=== PATIENT | male | born 1985 | race Caucasian/White ===

== ENCOUNTER 2016-08-15 21:05 | Emergency (ER) | payer OTHER ==
[~2016-08-15] VITALS: Ht 180.3 cm; Wt 88.7 kg
[2016-08-15 21:09] VITALS: TEMP 36.8; Ht 180.3 cm; Wt 88.7 kg
[2016-08-15] MEDS ORDERED: IBUP-1450 PO (21:20)
[2016-08-15] MEDS ORDERED: MoRPHine SULFATE 10 MG/ML CARP/VIAL IV STA (23:12)
[2016-08-15] MEDS ORDERED: ONDANSETRON INJ 2 MG/ML 2 ML VIAL IV STA (23:12)
[2016-08-15 23:29] VITALS: O2SAT 96
[2016-08-16] VITALS (11 sets, daily range): BP systolic 97–145; BP diastolic 62–91; PULSE 54–69; O2SAT 98–100
[2016-08-16] MEDS ORDERED: MIDAZOLAM HCL 1 MG/ML 2ML VIAL ONE (00:10)
[2016-08-16] MEDS ORDERED: PROPOFOL IV EMULSION 10 MG/ML 20 ML VIAL IV ONE (00:23)
[2016-08-16] MEDS ORDERED: OXYC1TAB3 PO (00:31)
--- NOTE | 2016-08-16 00:33 | EMERGENCY ROOM VISIT NOTE ---
Pre-Mod Sedation Assessment General Date of Moderate Sedation: Aug 16, 2016. Vital Signs: Vital Signs Past 12 Hours Date Time Temp Pulse Resp B/P Pulse Ox O2 Delivery O2 Flow Rate FiO2 08/15/16 23:29 66 17 112/78 96 Room Air 08/15/16 23:11 71 08/15/16 21:09 36.8 68 18 149/83 96 Room Air Review Cardiovascular: regular rate, rhythm, no edema, no murmur, normal peripheral pulses Abdomen: normal bowel sounds, non tender, soft Lungs: chest non-tender, lungs clear, normal breath sounds, no respiratory distress, no accessory muscle use Pre-Sedation Airway Assessment Oral Cavity: WNL Able to Visualize Vocal Cords: No Short Thick Neck: No Hx of Sleep Apnea: No Smoking Status: Current Every Day Smoker Mallampati Classification: Class I Procedure Planning Contraindications-for Mod Sed: None Yes Notes The planned sedation has been discussed with the patient and consent obtained. I have identified the patient, determined the appropriateness of sedation and have assessed the patient immediately prior to the procedure. All medicine(s) and interventions are by my order.
--- NOTE | 2016-08-16 00:50 | EMERGENCY ROOM VISIT NOTE ---
Post-Moderate Sedation Plan General Date of Moderate Sedation Aug 16, 2016. Vital Signs: Vital Signs Past 12 Hours Date Time Temp Pulse Resp B/P Pulse Ox O2 Delivery O2 Flow Rate FiO2 08/16/16 00:38 64 20 139/72 99 Nasal Cannula 2.0 08/16/16 00:28 69 20 115/68 98 Room Air 08/15/16 23:29 66 17 112/78 96 Room Air 08/15/16 23:11 71 08/15/16 21:09 36.8 68 18 149/83 96 Room Air Review - Discharge Plan Post Moderate Sedation Plan: On clinical assessment, the patient appears to have tolerated the conscious sedation without complications. Patient is recovering as anticipated. Patient will continue to be monitored by nursing and may be discharged when conscious sedation discharge criteria are met.
--- NOTE | 2016-08-16 00:54 | EMERGENCY ROOM VISIT NOTE ---
ED Visit Note First contact with patient: 23:50 The patient received IV morphine for pain. Sometime later, he received IV Versed for relaxation. He was not able to relax enough for the dislocated jaw to be reduced. He was too uncomfortable. I talked to the patient about undergoing conscious sedation, he was in favor of this. The risks and benefits were discussed. The proper paperwork was signed. The patient was placed on the rn cardiac rehab, all preparations were readied for conscious sedation. All airway equipment was readied. The patient had not eaten anything in about 6 hours. Conscious sedation: A timeout was taken. The patient received a total of 60 mg of propofol IV. He had adequate sedation and the jaw was reduced by Jonas Menchaca PA-C. The patient tolerated the procedure well, no complications. No issues with hypoxia or hypotension. Total time for the conscious sedation was about 18-20 minutes.
[2016-08-16] MEDS ORDERED: OXYCODONE HCL IR 5 MG TAB (IMMEDIATE RELEASE) PO STA (01:07)
[2016-08-16] MEDS ORDERED: PROPOFOL IV EMULSION 10 MG/ML 20 ML VIAL IV STA (01:11)
[2016-08-16] MEDS ORDERED: MIDAZOLAM HCL 5 MG/ML 1 ML VIAL IV STA (01:11)
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
== END 2016-08-16 01:54 | disposition home or self-care (01) ==
LOC: C.EDB 21:08
DX: S03.02XA Dislocation of jaw, left side, initial encounter (principal); X58.XXXA Exposure to other specified factors, initial encounter; F17.200 Nicotine dependence, unspecified, uncomplicated; Z87.828 Personal history of other (healed) physical injury and trauma

== ENCOUNTER 2016-08-25 22:50 | Emergency (ER) | payer OTHER ==
[~2016-08-25] VITALS: Ht 180.3 cm; Wt 87.7 kg
[~2016-08-25 22:50] MED LIST: IBUP-1450 PO; OXYC1TAB3 PO
[2016-08-25 22:58] VITALS: Ht 180.3 cm; Wt 87.7 kg
[2016-08-25] MEDS ORDERED: PROPOFOL IV EMULSION 10 MG/ML 100 ML VIAL IV PRN (23:15)
[2016-08-25 23:26] VITALS: PULSE 63; O2SAT 98
[2016-08-25] MEDS ORDERED: ACET-1256 PO (23:31)
[2016-08-25] MEDS ORDERED: PROPOFOL IV EMULSION 10 MG/ML 20 ML VIAL IV ONE (23:35)
[2016-08-25 23:42] VITALS: BP 114/69; PULSE 65; O2SAT 97
[2016-08-25 23:47] VITALS: BP 118/72; PULSE 68; O2SAT 97
[2016-08-25 23:51] VITALS: BP 118/72; PULSE 61; O2SAT 97
--- NOTE | 2016-08-25 23:56 | EMERGENCY ROOM VISIT NOTE ---
Pre-Mod Sedation Assessment General Date of Moderate Sedation: August 25, 2016. Vital Signs: Vital Signs Past 12 Hours Date Time Temp Pulse Resp B/P Pulse Ox O2 Delivery O2 Flow Rate FiO2 08/25/16 23:42 65 18 114/69 97 Room Air 08/25/16 23:30 99 Room Air 08/25/16 23:26 63 20 98 Room Air 08/25/16 23:25 62 08/25/16 22:58 57 20 130/78 98 Room Air Review Cardiovascular: regular rate, rhythm, no edema, no gallop, no JVD, no murmur, normal peripheral pulses Abdomen: normal bowel sounds, non tender, soft Lungs: chest non-tender, lungs clear, normal breath sounds, no respiratory distress, no accessory muscle use Airway Class: III Pre-Sedation Airway Assessment Oral Cavity: Chipped Teeth Able to Visualize Vocal Cords: No Short Thick Neck: No Hx of Sleep Apnea: No Smoking Status: Current Every Day Smoker Mallampati Classification: Class III (Unable to open jaw effectively with dislocation) ASA Classification: Class I Procedure Planning Contraindications-for Mod Sed: None Yes Notes The planned sedation has been discussed with the patient and consent obtained. I have identified the patient, determined the appropriateness of sedation and have assessed the patient immediately prior to the procedure. All medicine(s) and interventions are by my order.
--- NOTE | 2016-08-25 23:57 | EMERGENCY ROOM VISIT NOTE ---
Post-Moderate Sedation Plan General Date of Moderate Sedation August 25, 2016. Vital Signs: Vital Signs Past 12 Hours Date Time Temp Pulse Resp B/P Pulse Ox O2 Delivery O2 Flow Rate FiO2 08/25/16 23:42 65 18 114/69 97 Room Air 08/25/16 23:30 99 Room Air 08/25/16 23:26 63 20 98 Room Air 08/25/16 23:25 62 08/25/16 22:58 57 20 130/78 98 Room Air Review - Discharge Plan Post Moderate Sedation Plan: On clinical assessment, the patient appears to have tolerated the conscious sedation without complications. Patient is recovering as anticipated. Patient will continue to be monitored by nursing and may be discharged when conscious sedation discharge criteria are met.
[2016-08-26 00:06] VITALS: BP 115/70; PULSE 56; O2SAT 96
[2016-08-26 00:21] VITALS: BP 110/71; PULSE 57; O2SAT 98
[2016-08-26 00:25] VITALS: BP 114/77; PULSE 55; O2SAT 97
--- NOTE | 2016-08-26 04:39 | EMERGENCY ROOM VISIT NOTE ---
ED Visit Note First contact with patient: 23:03 Procedural Sedation Indication: Left TMJ Dislocation. Last Ate: 5pm 08/25/16 Previous issues with sedation: none Snore: denies Emergent: Yes ASA: II Mallampati: III - unable to open jaw with dislocation Dentures: none Time Out: 11:41pm Time Recovered: 11:51pm Total time: 16 minutes including pre, during and post sedation. Written consent was obtained after the risks and benefits were explained to the patient, including, but not limited to aspiration, allergic reaction, breathing difficulties, cardiac complications, vomiting, pain, event recall, bleeding, and /or infection. Pre-sedation examination and paperwork completed. The patient was on 100% oxygen via NRB prior to the procedure. Continuos end tidal CO2 monitoring, pulse oximetry, and cardiac monitoring were utilized. Suction, airway equipment, medications, respiratory equipment, and appropriate personnel were prepared prior to the initiation of the procedure. A time out was taken. Sedation was achieved utilizing 100 mg of propofol. After I observed the patient had reached the appropriate level of sedation the main procedure was performed without complication. Sedation was discontinued and the monitoring continued. The patient recovered quickly from the effects of the medication without complication or adverse event.
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
--- NOTE | 2016-08-26 07:37 | DIAGNOSTIC IMAGING REPORT ---
MAXILLOFACIAL CT CT DOSE: 608.58 mGy.cm HISTORY: Jaw pain. For mandible dislocation/injury TECHNIQUE: Multiaxial CT images of the maxillofacial region were performed and reformatted in the coronal plane without the use of contrast. COMPARISON: None. FINDINGS: The visualized cervical spine, skull base, pterygoid plates, nasal bones, lamina papyracea, orbital floors, mandible, and zygomatic arches are intact. No fractures. The orbits are unremarkable. IMPRESSION: No fractures within the maxillofacial region. The temporomandibular joints are well aligned. Electronically signed by: Javier Walker M.D. 08/26/2016 7:36 AM Dictated Date/Time: 08/26/2016 7:32 AM
== END 2016-08-26 01:01 | disposition home or self-care (01) ==
LOC: C.EDB 22:51
DX: S03.02XA Dislocation of jaw, left side, initial encounter (principal); X58.XXXA Exposure to other specified factors, initial encounter; F17.200 Nicotine dependence, unspecified, uncomplicated; Z88.5 Allergy status to narcotic agent; Z88.8 Allergy status to other drugs, medicaments and biological substances

== ENCOUNTER → 2016-10-28 | Outpatient (CLI) | payer OTHER ==
[~2016-10-28] MED LIST changes: +ACET-1256 PO; +IBUP-1427 PO; -OXYC1TAB3 PO
--- NOTE | 2016-10-28 13:26 | DIAGNOSTIC IMAGING REPORT ---
RIGHT HAND MIN 3 VIEWS HISTORY:31 yearsMaleRIGHT HAND INJURY Right COMPARISON: None TECHNIQUE: 3 views of the right hand FINDINGS: There is a slightly comminuted obliquely oriented fracture of the midshaft third metacarpal with ulnar and dorsal displacement of less than one cortex width. There is slight apex dorsal angulation of approximately 12 degrees. Moderate associated soft tissue swelling. No additional acute fracture or dislocation. No significant degenerative changes. Negative for radiopaque foreign body. IMPRESSION: Acute slightly comminuted and angulated obliquely oriented fracture of the midshaft third metacarpal. The above report was generated using voice recognition software. It may contain grammatical, syntax or spelling errors. Electronically signed by: Conor Montana M.D. 10/28/2016 1:25 PM Dictated Date/Time: 10/28/2016 1:23 PM
== END ==
LOC: C.RDSM 12:52
PROVIDERS: ATTEND Physician Assistant
DX: S62.322A Displaced fracture of shaft of third metacarpal bone, right hand, initial encounter for closed fracture (principal); X58.XXXA Exposure to other specified factors, initial encounter

== ENCOUNTER → 2016-11-19 | Outpatient (CLI) | payer OTHER ==
--- NOTE | 2016-11-19 08:44 | DIAGNOSTIC IMAGING REPORT ---
RIGHT HAND 3 VIEWS CLINICAL HISTORY: Follow-up fracture. FINDINGS: 3 views of the right hand are compared to study dated 10/28/2016. The skeletal structures are well mineralized. There is unchanged alignment of a healing comminuted fracture through the midshaft of the third metacarpal. Periosteal reaction and bony bridging are noted. There is persistent distraction of the largest fragments and mild angulation. Overlying soft tissue edema persists. No new fracture is seen. The joint spaces of the hand are well-maintained. IMPRESSION: Unchanged alignment of a healing third metacarpal fracture as compared to 10/28/2016. Electronically signed by: Denver Niño M.D. 11/19/2016 8:42 AM Dictated Date/Time: 11/19/2016 8:41 AM
== END ==
LOC: C.RDSM 12:08
PROVIDERS: ATTEND Physician Assistant
DX: S62.302D Unspecified fracture of third metacarpal bone, right hand, subsequent encounter for fracture with routine healing (principal); X58.XXXD Exposure to other specified factors, subsequent encounter

== ENCOUNTER 2016-12-26 21:55 | Emergency (ER) | payer OTHER ==
[~2016-12-26] VITALS: Ht 180.3 cm; Wt 80.2 kg
[~2016-12-26 21:55] MED LIST changes: -IBUP-1427 PO
[2016-12-26 21:59] VITALS: TEMP 36.6; Ht 180.3 cm; Wt 80.2 kg
[2016-12-26] MEDS ORDERED: KETAMINE HCL INJ 50 MG/ML 10 ML VIAL IV STA (22:50)
[2016-12-26 23:52] VITALS: BP 134/90; PULSE 70; O2SAT 99
[2016-12-26 23:55] VITALS: BP 148/76; PULSE 77; O2SAT 99
[2016-12-26 23:57] VITALS: BP 146/108; PULSE 85; O2SAT 99
[2016-12-27] MEDS ORDERED: KETOROLAC TROMETHAMINE 30 MG/ML VIAL IV STA
[2016-12-27 00:23] VITALS: BP 162/92; PULSE 61; O2SAT 95
--- NOTE | 2016-12-27 01:59 | EMERGENCY ROOM VISIT NOTE ---
History Report prepared by [place]: Elias Heart Under the Supervision of: Dr. Lee Adam M.D. First contact with patient: 22:35 Chief Complaint: FACIAL PAIN/INJURY Stated Complaint: MULTIPLE JAW DISLOCATIONS IN THE PAST History of Present Illness The patient is a 31 year old male who presents to the Emergency Room with complaints of constant left sided jaw pain that began around 2029. He rates his discomfort as a 3/10 in severity. He reports that the pain is worsened with trying to close his mouth. The patient states that he was able to eat dinner around 1714. He states that around 2029 he was eating an orange and his jaw suddenly locked up causing him jaw and facial pain. He states that he has not been able to close his mouth since. He admits that he has had this incident happen in the past. The patient denies falling and hitting his face. Source of History: patient Onset: 2029 Position: jaw, other Symptom Intensity: 3/10 Timing: constant Modifying Factors (Worsening): other (closing mouth) Note: The patient denies falling or hitting his face Review of Systems See HPI for pertinent positives & negatives. A total of 10 systems reviewed and were otherwise negative. Past Medical & Surgical Medical Problems: (1) Dislocation of mandible Surgical Problems: (1) No history of previous surgery Family History Patient reports no known family medical history. Social History Smoking Status: Current Every Day Smoker Alcohol Use: none Marital Status: single Housing Status: other Current/Historical Medications No Active Prescriptions or Reported Meds Allergies Coded Allergies: Codeine (Verified Allergy, Unknown, HIVES, 08/25/16) Promethazine (Verified Adverse Reaction, Unknown, irritability, 08/25/16) Physical Exam Vital Signs Date Time Temp Pulse Resp B/P (MAP) Pulse Ox O2 Delivery O2 Flow Rate FiO2 12/27/16 00:23 61 18 162/92 95 Room Air 12/26/16 23:58 85 12/26/16 23:57 85 18 146/108 99 Room Air 12/26/16 23:55 77 18 148/76 99 Room Air 12/26/16 23:52 70 18 134/90 99 Room Air 12/26/16 23:49 61 18 135/74 97 Room Air 12/26/16 21:59 36.6 61 18 133/80 97 Room Air Physical Exam Constitutional: Vital signs reviewed. Eyes: Pupils are equal round reactive to light. Conjunctiva are noninjected. ENT: Pharynx is clear without erythema or exudate. Mucous membranes are moist. Neck supple without meningeal signs. Deformity of left jaw consistent with unilateral mandibular dislocation. Respiratory: Clear to auscultation bilaterally. Breath sounds are equal bilaterally. Cardiovascular: Regular rate and rhythm. No rubs or gallops. GI: Soft, nondistended and nontender. Bowel sounds are present. Musculoskeletal: No peripheral edema. No lower extremity tenderness. Integumentary: No cyanosis. Neurological: The patient is awake and alert. No focal deficits. Psychiatric: Anxious. Medical Decision & Procedures ER Provider Diagnostic Interpretation: X-ray results as stated below per interpretation by me: MANDIBULAR X-RAY Left mandibular dislocation. SECOND MANDIBULAR X-RAY Good anatomical alignment post reduction. Medications Administered Medications (Trade) Dose Ordered Sig/Ricardo Route Start Time Stop Time Status Last Admin Dose Admin Ketamine HCl (Ketalar Steri-Vial Inj) 12 mg NOW STAT IV 12/26/16 22:50 12/26/16 22:53 DC 12/26/16 23:50 24 MG Ketorolac Tromethamine (Toradol Inj) 10 mg NOW STAT IV 12/27/16 00:00 12/27/16 00:01 DC 12/27/16 00:23 10 MG Procedure Mandibular Dislocation Reduction Indication: Jaw dislocation Verbal consent obtained. Risks and benefits were explained with the usual customary discussion. A time out was taken. The left mandibular dislocation was reduced by placing the patient supine and applying gentle downward inline traction on the mandible. This resulted in an easy reduction without complication. The patient tolerated the procedure well. ED Course 2242: The patient was evaluated in room C10. A complete history and physical exam was performed. 2250: Ordered Ketamine HCl 12mg IV. 0000: Ordered Toradol Injection 10 mg IV. 0001: I performed a mandibular reduction. See procedure note for further details. Medical Decision This is a 31-year-old male presents with jaw pain. Differential diagnosis includes mandibular dislocation, fracture. I did perform a limited focused review of portions of the patient's old chart on the electronic medical record. The patient has had no recent pertinent visits to this hospital. I did evaluate the patient as noted above. Clinically he has a obvious jaw dislocation. He states he has had multiple dislocations in the past. IV access was established. I did order and personally review the patient's mandibular x-rays as described above. He does have a sober friend an obvious mandibular dislocation on the left side. I did treat him with an analgesic dose of ketamine and 0.3 mg/kg IV over 5 minutes. I did attempt extraoral reduction but was unsuccessful. I therefore performed a reduction in the standard fashion by applying downward and posterior pressure with easy reduction of the mandible. I did order a postreduction film of the mandible which showed good anatomic alignment. The patient was treated with Toradol IV and discharged back to [facility]. He was advised to stay on a soft diet. Medication Reconcilliation Current Medication List: was personally reviewed by me Blood Pressure Screening Patient's blood pressure: Elevated blood pressure Blood pressure disposition: Elevated BP felt to be situational Impression Primary Impression: Dislocation of mandible Scribe Attestation The scribe's documentation has been prepared under my direct and personally reviewed by me in its entirety. I confirm that the note above accurately reflects all work, treatment, procedures, and medical decision making performed by me. Departure Information Dispostion Home / Self-Care Prescriptions No Active Prescriptions or Reported Meds Referrals Nivia VALLEJO (PCP) Forms HOME CARE DOCUMENTATION FORM, IMPORTANT VISIT INFORMATION Patient Instructions ED Dislocation Mandible, My [facility] Additional Instructions You have been examined and treated today on an emergency basis only. This is not a substitute for, or an effort to provide, complete comprehensive medical care. It is impossible to recognize and treat all injuries or illnesses in a single emergency department visit. It is therefore important that you follow up closely with the [facility]. Eat a soft diet for the next several days. Avoid opening your mouth fully. Problem Qualifiers Primary Impression: Dislocation of mandible Encounter type: initial encounter Qualified Codes: S03.00XA - Dislocation of jaw, unspecified side, initial encounter
--- NOTE | 2016-12-27 05:58 | DIAGNOSTIC IMAGING REPORT ---
MANDIBLE < 4 VIEWS CLINICAL HISTORY: eval for dislocation trauma. Dislocation. COMPARISON STUDY: None FINDINGS: Images of the mandible shows of both mandibular condyles to be positioned in overall anterior translation. Condylar fossa somewhat flattened. IMPRESSION: Anterior displacement of the mandibular condyles bilaterally. Flattening of the condylar fossa. The above report was generated using voice recognition software. It may contain grammatical, syntax or spelling errors. Electronically signed by: Jon Pulido M.D. 12/27/2016 5:57 AM Dictated Date/Time: 12/27/2016 5:55 AM
--- NOTE | 2016-12-27 06:06 | DIAGNOSTIC IMAGING REPORT ---
MANDIBLE < 4 VIEWS CLINICAL HISTORY: post reduciton dislocation COMPARISON STUDY: Study earlier same date. FINDINGS: Anatomic alignment IMPRESSION: Anatomic alignment status post closed reduction The above report was generated using voice recognition software. It may contain grammatical, syntax or spelling errors. Electronically signed by: Jon Pulido M.D. 12/27/2016 6:05 AM Dictated Date/Time: 12/27/2016 6:04 AM
[2016-12-27] MEDS ORDERED: IBUP-1450 PO (11:50)
[2016-12-27] MEDS ORDERED: IBUP-1427 PO (17:39)
== END 2016-12-27 00:47 | disposition home or self-care (01) ==
LOC: C.EDB 21:57 → C.EDC 12-27 00:47
DX: S03.00XA Dislocation of jaw, unspecified side, initial encounter (principal); X58.XXXA Exposure to other specified factors, initial encounter; F17.200 Nicotine dependence, unspecified, uncomplicated; Z87.828 Personal history of other (healed) physical injury and trauma; Z88.5 Allergy status to narcotic agent; Z88.8 Allergy status to other drugs, medicaments and biological substances

== ENCOUNTER 2016-12-27 11:37 | Emergency (ER) | payer OTHER ==
[~2016-12-27] VITALS: Ht 180.3 cm; Wt 79.7 kg
[2016-12-27 11:42] VITALS: Ht 180.3 cm; Wt 79.7 kg
[2016-12-27] MEDS ORDERED: IBUP-1450 PO (11:50)
[2016-12-27] MEDS ORDERED: MoRPHine SULFATE 10 MG/ML CARP/VIAL IV STA (12:46)
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
[2016-12-27] MEDS ORDERED: NURSING VERBAL MED ORDER ONE (14:00)
[2016-12-27] MEDS ORDERED: MoRPHine SULFATE 4 MG/ML 1 ML CARP\\VIAL ONE (14:26)
--- NOTE | 2016-12-27 14:55 | DIAGNOSTIC IMAGING REPORT ---
MANDIBLE MIN 4 VIEWS ROUTINE CLINICAL HISTORY: left TMJ dislocation pain COMPARISON STUDY: 12/27/2016 FINDINGS: Findings consistent with anterior translation of the mandibular condyles with the jaw in the open mouth position. No well-defined fracture.. This consistent with that of TMJ joint dislocation/meniscal dislocation. IMPRESSION: Findings consistent with that of a TMJ dislocation/meniscal displacement The above report was generated using voice recognition software. It may contain grammatical, syntax or spelling errors. Electronically signed by: Jon Pulido M.D. 12/27/2016 2:54 PM Dictated Date/Time: 12/27/2016 2:52 PM
[2016-12-27] MEDS ORDERED: DIAZEPAM INJ 5 MG/ML 2 ML CARP ONE (15:06)
[2016-12-27 15:24] VITALS: BP 118/58; PULSE 45; TEMP 36.9; O2SAT 97
--- NOTE | 2016-12-27 15:42 | EMERGENCY ROOM VISIT NOTE ---
Pre-Mod Sedation Assessment General Date of Moderate Sedation: Dec 27, 2016. Vital Signs: Vital Signs Past 12 Hours Date Time Temp Pulse Resp B/P (MAP) Pulse Ox O2 Delivery O2 Flow Rate FiO2 12/27/16 15:24 36.9 45 20 118/58 97 Room Air 12/27/16 14:49 46 12/27/16 14:46 51 19 116/73 97 Room Air 12/27/16 14:46 97 Room Air 12/27/16 11:42 36.7 61 20 117/74 98 Room Air Review Cardiovascular: regular rate, rhythm, no murmur Abdomen: non tender, soft Lungs: lungs clear Pre-Sedation Airway Assessment Oral Cavity: WNL Short Thick Neck: No Hx of Sleep Apnea: No Smoking Status: Current Every Day Smoker Mallampati Classification: Class I ASA Classification: Class I Procedure Planning Contraindications-for Mod Sed: None Yes Notes The planned sedation has been discussed with the patient and consent obtained. I have identified the patient, determined the appropriateness of sedation and have assessed the patient immediately prior to the procedure. All medicine(s) and interventions are by my order.
[2016-12-27] MEDS ORDERED: PROPOFOL IV EMULSION 10 MG/ML 20 ML VIAL IV ONE (15:48)
[2016-12-27 16:01] VITALS: BP 113/66; PULSE 55; O2SAT 98
[2016-12-27] MEDS ORDERED: MoRPHine SULFATE 10 MG/ML CARP/VIAL IV ONE (16:45)
[2016-12-27 16:58] VITALS: BP 115/68; PULSE 49; TEMP 36.5; O2SAT 100
[2016-12-27] MEDS ORDERED: IBUP-1427 PO (17:39)
--- NOTE | 2016-12-27 17:42 | EMERGENCY ROOM VISIT NOTE ---
Post-Moderate Sedation Plan General Date of Moderate Sedation Dec 27, 2016. Vital Signs: Vital Signs Past 12 Hours Date Time Temp Pulse Resp B/P (MAP) Pulse Ox O2 Delivery O2 Flow Rate FiO2 12/27/16 17:08 43 16 108/65 99 Room Air 12/27/16 16:58 36.5 49 12 115/68 100 Room Air 12/27/16 16:54 50 12 103/66 100 Nasal Cannula 2.0 12/27/16 16:20 113/65 12/27/16 16:17 45 5 97 12/27/16 16:15 104/61 12/27/16 16:12 50 7 98 12/27/16 16:11 120/68 12/27/16 16:07 52 12 99 12/27/16 16:05 10 115/64 98 Nasal Cannula 2.0 12/27/16 16:02 52 10 98 Nasal Cannula 2.0 12/27/16 16:01 51 12 113/66 98 Nasal Cannula 2.0 12/27/16 16:01 55 12 113/66 98 Nasal Cannula 2.0 12/27/16 15:57 42 12 111/54 99 Nasal Cannula 2.0 12/27/16 15:57 42 8 99 12/27/16 15:55 111/54 12/27/16 15:52 42 8 99 12/27/16 15:50 110/61 12/27/16 15:47 46 10 98 12/27/16 15:45 102/65 12/27/16 15:42 42 9 99 12/27/16 15:41 45 12 118/77 99 Nasal Cannula 2.0 12/27/16 15:40 118/77 12/27/16 15:37 54 12/27/16 15:32 46 97 12/27/16 15:30 105/60 12/27/16 15:27 49 118/58 95 12/27/16 15:24 36.9 45 20 118/58 97 Room Air 12/27/16 15:22 49 12 97 12/27/16 15:19 123/66 12/27/16 15:17 52 15 12/27/16 15:12 61 13 98 12/27/16 15:10 111/77 12/27/16 15:07 52 14 100 12/27/16 15:03 118/65 12/27/16 15:02 46 15 97 12/27/16 14:57 46 18 97 12/27/16 14:52 48 20 98 12/27/16 14:49 46 12/27/16 14:46 51 19 116/73 97 Room Air 12/27/16 14:46 97 Room Air 12/27/16 14:45 116/73 12/27/16 11:42 36.7 61 20 117/74 98 Room Air Review - Discharge Plan Post Moderate Sedation Plan: On clinical assessment, the patient appears to have tolerated the conscious sedation without complications. Patient is recovering as anticipated. Patient will continue to be monitored by nursing and may be discharged when conscious sedation discharge criteria are met.
[2016-12-27 18:25] VITALS: BP 134/72; PULSE 61; TEMP 36.5; O2SAT 93
== END 2016-12-27 18:28 ==
LOC: C.EDB 11:39 → C.EDA 18:28
DX: S03.02XA Dislocation of jaw, left side, initial encounter (principal); Z87.828 Personal history of other (healed) physical injury and trauma; Z87.891 Personal history of nicotine dependence; Z82.49 Family history of ischemic heart disease and other diseases of the circulatory system; Z83.3 Family history of diabetes mellitus; Z83.6 Family history of other diseases of the respiratory system; Z84.1 Family history of disorders of kidney and ureter; X58.XXXA Exposure to other specified factors, initial encounter